=== PATIENT | female | born 1995 | race Caucasian/White ===

== ENCOUNTER 2024-12-07 22:56 | Emergency (ER) | payer SELFPAY ==
[2024-12-07 23:11] VITALS: BP 168/96
[2024-12-08 00:35] VITALS: BMI 32.8
[2024-12-08 00:37] VITALS: BP 146/85
--- NOTE | 2024-12-08 01:24 | ED.GENMED ---
History of Present Illness
General
Chief Complaint: Dental Problem
Source: patient and significant other
Exam Limitations: none
Time Seen by Provider: 12/08/24 01:10
Nursing documentation reviewed up to this point in time: agreed with
History of Present Illness
History of Present Illness:
Note:
CHIEF COMPLAINT(S)
Dental pain and foreign object lodged in a tooth cavity.
HISTORY OF PRESENT ILLNESS
The patient is a 28-year-old female who reports experiencing dental pain due to what she describes as 'something stuck' in her cavity for several days. The patient attempted multiple methods to remove the object, including creating suction in her
mouth, but has been unsuccessful. She describes the sensation as painful and indicated that she may require a root canal as per a dental appointment scheduled for the . The patient also experiences pain from a shoulder fracture sustained years
ago, which she never had surgically treated. The shoulder pain has flared up more recently, affecting the surrounding area including her jaw and teeth, complicating her ability to distinguish the sources of her pain. Pain intensity was described
metaphorically as jeni to 'a 12-ball motor,� indicating significant discomfort. The patient mentioned using ibuprofen for pain management.
PAST MEDICAL AND SURGICAL HISTORY
The patient has a history of a shoulder fracture from a few years ago, which has not been surgically corrected.
MEDICATIONS
The patient is using ibuprofen for pain control.
PHYSICAL EXAM
General: Alert, no acute distress.
Skin: Warm, dry.
Head: Normocephalic, atraumatic.
Neck: Supple, trachea midline.
Eye, Ears, Nose, Mouth and Throat: Oral mucosa moist.
Cardiovascular: Normal peripheral perfusion, No edema.
Respiratory: Respirations are non-labored.
Gastrointestinal : Abdomen nondistended
Back: Normal range of motion, Normal alignment.
Musculoskeletal: Normal ROM, normal strength.
Neurological: Alert and oriented to person, place, time, and situation, No focal neurological deficit observed.
Psychiatric: Cooperative, appropriate mood & affect.
PROBLEM LIST
Acute Problem:
- Dental pain and foreign object in tooth cavity.
Chronic Problem:
- Chronic shoulder pain from an untreated fracture.
PLAN
- The patient may require a root canal procedure, as discussed in a scheduled dental appointment.
- Management with ibuprofen for pain relief.
DIFFERENTIAL DIAGNOSIS
The Differential Diagnosis includes, in no particular order and is not limited to:
- Dental caries
- Pulpitis
- Periapical abscess
- Dental fracture
- Foreign body in tooth
- Temporomandibular joint disorder
- Referred pain from chronic shoulder injury
- Gingivitis
- Osteomyelitis of the jaw
- Sinusitis
Disposition:
SUMMARY OF ENCOUNTER
The patient, a 28-year-old female, presented with a fracture of her right upper molar number 14, where she suspected a foreign body was lodged. Upon examination, no foreign body was visible, and attempts to remove any were unsuccessful. Antibiotics
were prescribed for potential infection, and the patient has a root canal scheduled for December 14.
DISPOSITION
Discharge.
ASSESSMENT
Dental pain likely due to the fracture of molar number 14, with suspicion of a foreign object that was not visible or removable during the visit.
PLAN
The patient received a prescription for antibiotics to address any potential infection around the fractured tooth. She will follow up with her scheduled dental appointment for a root canal procedure on December 14.
PATIENT EDUCATION AND COUNSELING
The patient was informed about the need to continue with antibiotics as prescribed and the importance of attending the upcoming dental appointment for a root canal.
FOLLOW-UP INSTRUCTIONS
The patient should follow up with her dentist on December 14 for the scheduled root canal procedure and seek further care if dental pain worsens or any new symptoms develop.
MEDICATION RECONCILIATION
Antibiotics prescribed for suspected infection around the fractured molar. The patient declined pain medication during the visit.
MEDICAL DECISION MAKING
- Number and Complexity of Problems Addressed: Chronic conditions affecting care include chronic shoulder pain from an untreated fracture. Differential diagnosis includes:
- Dental caries
- Pulpitis
- Periapical abscess
- Dental fracture
- Foreign body in tooth
- Temporomandibular joint disorder
- Referred pain from chronic shoulder injury
- Gingivitis
- Osteomyelitis of the jaw
- Sinusitis
- Risk: Prescription medication was prescribed (antibiotics) for management of suspected infection.
DIAGNOSIS
- Dental fracture, ICD-10: K08.8
- Suspected foreign body in tooth, ICD-10: T18.120A (Encounter for removal of foreign body from oral cavity)
Past History
Past History
ED Past Medical History: None
ED Past Surgical History: None
Social History
Tobacco: Non-smoker
Alcohol: None
Drug: None
Personal: Single
Living: with family
Phy Exam
Physical Exam
Physical Exam:
.
Course
Vital Signs
Initial and Last Documented VS:
Initial Vital Signs
Temp Pulse Resp BP Pulse Ox
98.3 F 95 18 168/96 99
12/07/24 23:11 12/07/24 23:11 12/07/24 23:11 12/07/24 23:11 12/07/24 23:11
Last Documented Vital Signs
Temp Pulse Resp BP Pulse Ox
98.3 F 90 18 146/85 98
12/07/24 23:11 12/08/24 00:37 12/08/24 00:37 12/08/24 00:37 12/08/24 00:37
*Pulse Oximetry
SaO2: 98
Oxygen Mode of Delivery: Room air
Patient hypoxic: no
*Critical Care Note
Total Time (30-74mins, 75-104mins- exclusive of procedures): Not Applicable
ED Attending Note
-
Portions of this chart may have been created with voice recognition software.� Occasional wrong word or��sound alike� substitutions may have occurred due to the inherent limitations of voice recognition software.
Discharge Plan
Departure
Patient Disposition: Home (Routine Discharge)
Date of Disposition: 12/08/24
Time of Disposition: 01:28
Patient with high blood pressure during this ER visit?: Yes
Discharge Problem:
Dental cavity
Instructions: Tooth Decay, Adult (DC), Fractured Tooth (DC), BLOOD PRESSURE
Prescriptions:
New
amoxicillin-pot clavulanate 875-125 mg tablet
1 tab PO BID Qty: 20 0RF
No Action
No Current Medications
amoxicillin 500 MG capsule
500 mg PO TID Qty: 21 0RF
amoxicillin 500 MG capsule
500 mg PO TID Qty: 21 0RF
Referrals:
[facility] [Outside]
NONE,* [Family Provider, Internal Medicine]
Activity Restrictions/Additional Instructions:
Please follow-up with your dentist as discussed
Interventions
Interventions:
*Risk Screen - Suicide Last Done: 12/07/24 23:15
*General Assessment Last Done: 12/08/24 00:35
*Neglect/Abuse Screening Last Done: 12/07/24 23:15
*ED- Fall Risk Assessment Last Done: 12/08/24 00:35
*ED COVID-19 Vaccine History Last Done: 12/08/24 00:35
Discharge Date and Time
Print Language: [place]
[2024-12-08] MEDS: AUGMENTIN 875 MG/125 MG 1 TABLET PO (01:44)
== END 2024-12-08 01:48 | disposition home or self-care (01) ==
LOC: EMR 22:56
PROVIDERS: EMERGENCY PHYSICIAN Student in an Organized Health Care Education/Training Program
DX: K02.9 Dental caries, unspecified (principal)
CPT/HCPCS: 99282